=== PATIENT | female | born 2000 | race Two or more races ===

== ENCOUNTER 2023-06-15 05:17 | Emergency (ER) | payer MEDICAID ==
[~2023-06-15] VITALS: Ht 157.5 cm; Wt 61.1 kg
[2023-06-15] MEDS ORDERED: ALBUTEROL MEDNEB 2.5 mg/3ml NEB NEB ONE (06:45)
[2023-06-15] MEDS ORDERED: IPRATROPIUM BROM 0.5 MG/2.5ML INH SOL NEB ONE (06:45)
[2023-06-15 07:42] VITALS: BP 122/77; TEMP 98.6
[2023-06-15 07:44] VITALS: PULSE 96; RESP 18; O2SAT 96
[2023-06-15 08:18] LABS: Urine Bacteria FEW /hpf (None Seen); Urine Blood Negative /uL (Negative); Urine Clarity HAZY (Clear); Urine Color Yellow (Yellow); Urine Mucus FEW (None Seen); Urine Protein, UAD TRACE (Negative); Urine Specific Gravity 1.021 (1.001-1.035); Urine WBC 1 /hpf (0 - 5); Urine pH 6.5 (5.0-8.0)
[2023-06-15 09:02] LABS: COVID19 ANTIGEN SOFIA FIA NEGATIVE (NEGATIVE)
[2023-06-15 09:09] LABS: Rapid Influenza B Negative (Negative)
[2023-06-15 09:10] LABS: Rapid Influenza A Positive (Negative)
[2023-06-15] MEDS ORDERED: NITR-87 PO (09:23)
[2023-06-15] MEDS ORDERED: ALBU108A5 IN (09:23)
[2023-06-15] MEDS ORDERED: TAMIFLU PO (09:23)
[2023-06-15] MEDS ORDERED: ACET500T58 PO (09:23)
== END 2023-06-15 09:24 | disposition home or self-care (01) ==
LOC: ER 05:17
DX: J10.1 Influenza due to other identified influenza virus with other respiratory manifestations (principal); N39.0 Urinary tract infection, site not specified; Z20.822 Contact with and (suspected) exposure to COVID-19
CPT/HCPCS: 36415; 81001; 81025; 87426; 87804; 94640; 99283; J7644

== ENCOUNTER 2023-06-18 22:43 | Emergency (ER) | payer MEDICAID ==
[~2023-06-18] VITALS: Ht 157.5 cm; Wt 61.4 kg
[~2023-06-18 22:43] MED LIST: ACET500T58 PO; ALBU108A5 IN; NITR-87 PO; TAMIFLU PO
[2023-06-18 22:56] VITALS: BP 112/79; PULSE 103; RESP 18; O2SAT 96
[2023-06-18 23:26] LABS: Basophils # (auto) 0 10 ^3/uL (0-0.2); Basophils % (auto) 0.3 % (0.0-2.0); Eosinophils # (auto) 0.1 10 ^3/uL (0-0.8); Eosinophils % (auto) 1.3 % (0.0-7.0); Hematocrit 41.2 % (36.0-46.0); Lymphocytes # (auto) 1.6 10 ^3/uL (0.4-5.4); Mean Corpuscular Hemoglobin 30.7 pg (28.0-32.0); Mean Corpuscular Hgb Conc. 34.1 g/dL (32.0-36.0); Mean Corpuscular Volume 90.1 fL (80.0-100.0); Monocytes # (auto) 0.4 10 ^3/uL (0-1.3); Monocytes % (auto) 6.8 % (0.0-12.0); Neutrophils # (auto) 3.6 10 ^3/uL (1.6-8.6); Neutrophils % (auto) 63.6 % (37.0-80.0); Red Blood Cells 4.57 10^6/uL (4.0-5.20); Red Cell Distribution Width 13.4 % (11.8-14.3); White Blood Cell 5.6 10^3/uL (4.4-10.8)
[2023-06-18 23:29] LABS: Urine Bacteria NONE SEEN /hpf (None Seen); Urine Blood Negative /uL (Negative); Urine Clarity Clear (Clear); Urine Color Yellow (Yellow); Urine Mucus FEW (None Seen); Urine Protein, UAD Negative (Negative); Urine Specific Gravity 1.017 (1.001-1.035); Urine WBC 1 /hpf (0 - 5)
[2023-06-18 23:40] LABS: Alanine Aminotransferase 22 U/L (7-40); Alkaline Phosphatase 58 U/L (46-116); Anion Gap 6 (5-15); Aspartate Aminotransferase 23 U/L (13-40); Calcium 9.3 mg/dL (8.5-10.1); Carbon Dioxide 27 mmol/L (20-30); Chloride 106 mmol/L (98-107); Glucose 97 mg/dL (74-106); Potassium 3.5 mmol/L (3.5-5.1); Sodium 139 mmol/L (136-145)
[2023-06-18 23:41] LABS: Bilirubin, Total 0.3 mg/dL (0.2-1.0); Total Protein 6.4 g/dL (5.7-8.2)
[2023-06-18 23:57] LABS: BUN/Creatinine Ratio 8.3 (10.0-20.0); Blood Urea Nitrogen < 5 mg/dL (9-23)
[2023-06-19] MEDS ORDERED: LIDOCAINE 1% HCL (LOCAL ANESTH.) INJ 20ML MDV ONE (10:53)
== END 2023-06-19 06:26 | disposition left against medical advice (07) ==
LOC: ER 22:43
DX: O26.892 Other specified pregnancy related conditions, second trimester (principal); R10.2 Pelvic and perineal pain; M54.59 Other low back pain; Z3A.15 15 weeks gestation of pregnancy; Z53.21 Procedure and treatment not carried out due to patient leaving prior to being seen by health care provider
CPT/HCPCS: 36415; 80053; 81001; 84702; 85025; 99281; J2001

== ENCOUNTER 2023-08-03 14:30 | Observation (INO) | payer MEDICAID ==
[~2023-08-03] VITALS: Ht 157.5 cm; Wt 63.4 kg
[2023-08-03 14:36] VITALS: BP 129/86; PULSE 137; RESP 16; O2SAT 96
== END 2023-08-03 16:38 | disposition home or self-care (01) ==
LOC: ER 14:30 → LDRP 15:39
PROVIDERS: ADMIT Obstetrics & Gynecology; ATTEND Obstetrics & Gynecology
DX: O26.892 Other specified pregnancy related conditions, second trimester (principal); R51.9 Headache, unspecified; Z3A.23 23 weeks gestation of pregnancy
CPT/HCPCS: 59025; 81002; 94760; 99284; G0378; 93005

== ENCOUNTER 2023-08-20 22:07 | Observation (INO) | payer MEDICAID ==
[~2023-08-20] VITALS: Ht 157.5 cm; Wt 64.4 kg
[2023-08-20] MEDS ORDERED: LACTATED RINGER'S 1,000 ML IV SCH (22:30)
[2023-08-20] MEDS ORDERED: TERBUTALINE SULFATE 1 MG/ML 1ML VIAL SC SCH (22:30)
[2023-08-20] MEDS ORDERED: LACTATED RINGER'S 1,000 ML IV ONE (22:30)
[2023-08-20 22:38] LABS: Urine Bacteria FEW /hpf (None Seen); Urine Blood 3+ /uL (Negative); Urine Clarity HAZY (Clear); Urine Color Colorless (Yellow); Urine Protein, UAD TRACE (Negative); Urine Specific Gravity 1.004 (1.001-1.035); Urine Urobilinogen Normal (Negative); Urine WBC 291 /hpf (0 - 5); Urine WBC Clumps PRESENT /hpf (None Seen); Urine pH 6.5 (5.0-8.0)
[2023-08-20] MEDS ORDERED: cefTRIAXone 1GM/50ML D5W 50 ML IV ONE (22:45)
[2023-08-20 22:49] LABS: Amphetamine Screen, Urine Neg (NEGATIVE); Barbiturate Scree,Urine Neg (NEGATIVE); Benzodiazephine Screen, Urine Neg (NEGATIVE); Cocaine Screen, Urine Neg (NEGATIVE)
[2023-08-20 22:50] LABS: Cannabinoid Screen, Urine Neg (NEGATIVE); Opiate Scree,Urine Neg (NEGATIVE); Phencyclidine Screen, Urine Neg (NEGATIVE)
[2023-08-20 23:41] LABS: Basophils # (auto) 0 10 ^3/uL (0-0.2); Basophils % (auto) 0.2 % (0.0-2.0); Eosinophils # (auto) 0.1 10 ^3/uL (0-0.8); Eosinophils % (auto) 0.7 % (0.0-7.0); Hemoglobin 12.7 g/dL (12.2-16.2); Lymphocytes # (auto) 1.9 10 ^3/uL (0.4-5.4); Lymphocytes % (auto) 14.9 % (10.0-50.0); Mean Corpuscular Hgb Conc. 33.5 g/dL (32.0-36.0); Mean Corpuscular Volume 92.5 fL (80.0-100.0); Monocytes # (auto) 0.8 10 ^3/uL (0-1.3); Monocytes % (auto) 6.1 % (0.0-12.0); Neutrophils # (auto) 10.1 10 ^3/uL (1.6-8.6); Neutrophils % (auto) 78.1 % (37.0-80.0); Nucleated Red Blood Cells % 0.1 %; Red Blood Cells 4.11 10^6/uL (4.0-5.20); Red Cell Distribution Width 13.9 % (11.8-14.3); White Blood Cell 12.9 10^3/uL (4.4-10.8)
[2023-08-20 23:53] LABS: Alanine Aminotransferase 16 U/L (7-40); Albumin 3.5 g/dL (3.2-4.8); Alkaline Phosphatase 81 U/L (46-116); Anion Gap 7 (5-15); Aspartate Aminotransferase 18 U/L (13-40); Bilirubin, Total 0.4 mg/dL (0.2-1.0); Calcium 8.8 mg/dL (8.7-10.4); Carbon Dioxide 24 mmol/L (20-30); Chloride 108 mmol/L (98-107); Glucose 111 mg/dL (74-106); Potassium 3.3 mmol/L (3.5-5.1); Sodium 139 mmol/L (136-145); Total Protein 5.8 g/dL (5.7-8.2)
[2023-08-20] MEDS ORDERED: PREN-96 PO (23:53)
[2023-08-20] MEDS ORDERED: ASPI-543 PO (23:53)
[2023-08-20 23:58] LABS: BUN/Creatinine Ratio 9.3 (10.0-20.0); Blood Urea Nitrogen < 5 mg/dL (9-23)
== END 2023-08-21 00:29 | disposition home or self-care (01) ==
LOC: LDRP 22:07
PROVIDERS: ADMIT Obstetrics & Gynecology; ATTEND Obstetrics & Gynecology
DX: O47.02 False labor before 37 completed weeks of gestation, second trimester (principal); O23.42 Unspecified infection of urinary tract in pregnancy, second trimester; O99.282 Endocrine, nutritional and metabolic diseases complicating pregnancy, second trimester; E86.0 Dehydration; Z3A.24 24 weeks gestation of pregnancy
CPT/HCPCS: 36415; 59025; 76815; 80053; 80307; 81001; 81002; 85025; 87086; 94760; 96361; 96365; 96372; G0378; J0696; J3105; 87088; 87186; 96360

== ENCOUNTER 2023-11-11 07:28 | Observation (INO) | payer MEDICAID ==
[~2023-11-11] VITALS: Ht 157.5 cm; Wt 70.8 kg
[~2023-11-11 07:28] MED LIST changes: +ASPI-543 PO; +PREN-96 PO
[2023-11-11] MEDS ORDERED: CEPH250C PO (08:53)
[2023-11-11] MEDS: TERBUTALINE SULFATE 1 MG/ML 1ML VIAL SC SCH (09:02)
[2023-11-11] MEDS: LACTATED RINGER'S 1,000 ML IV ONE (09:04)
== END 2023-11-11 10:24 | disposition home or self-care (01) ==
LOC: LDRP 07:28 → UNDOADMOB 07:28 → LDRP 07:36 → UNDODISOB 10:24
PROVIDERS: ADMIT Obstetrics & Gynecology; ATTEND Obstetrics & Gynecology
DX: O23.43 Unspecified infection of urinary tract in pregnancy, third trimester (principal); O60.03 Preterm labor without delivery, third trimester; O99.513 Diseases of the respiratory system complicating pregnancy, third trimester; J45.909 Unspecified asthma, uncomplicated; Z3A.36 36 weeks gestation of pregnancy
CPT/HCPCS: 59025; 81002; 96360; 96372; G0378; J3105

== ENCOUNTER 2023-11-26 05:41 | Observation (INO) | payer MEDICAID ==
[~2023-11-26 05:41] MED LIST changes: +CEPH250C PO
== END 2023-11-26 08:35 | disposition home or self-care (01) ==
LOC: LDRP 05:41
PROVIDERS: ADMIT Obstetrics & Gynecology; ATTEND Obstetrics & Gynecology
DX: O62.9 Abnormality of forces of labor, unspecified (principal); Z3A.38 38 weeks gestation of pregnancy
CPT/HCPCS: 59025; 76805; 81002; 94760; G0378

== ENCOUNTER 2023-11-26 10:20 | Inpatient (IN) | payer MEDICAID ==
[~2023-11-26] VITALS: Ht 157.5 cm; Wt 70.8 kg
[2023-11-26] MEDS ORDERED: BUTORPHANOL TARTRATE 2 MG/1 ML VIAL IV PRN ×2 (11:00)
[2023-11-26] MEDS ORDERED: LIDOCAINE 2%HCL (LOCAL ANESTH.) INJ 20ML MDV IJ PRN (11:00)
[2023-11-26 11:30] LABS: Urine Bacteria None Seen /hpf (None Seen)
[2023-11-26 11:44] LABS: Urine Blood 2+ /uL (Negative); Urine Clarity Clear (Clear); Urine Color Yellow (Yellow); Urine Mucus FEW (None Seen); Urine Protein, UAD Negative (Negative); Urine Specific Gravity 1.014 (1.001-1.035); Urine Urobilinogen Normal (Negative); Urine WBC 1 /hpf (0 - 5)
[2023-11-26 11:49] LABS: Amphetamine Screen, Urine Neg (NEGATIVE); Barbiturate Scree,Urine Neg (NEGATIVE); Benzodiazephine Screen, Urine Neg (NEGATIVE); Cocaine Screen, Urine Neg (NEGATIVE)
[2023-11-26 11:51] LABS: Basophils # (auto) 0 10 ^3/uL (0-0.2); Basophils % (auto) 0.1 % (0.0-2.0); Eosinophils # (auto) 0 10 ^3/uL (0-0.8); Eosinophils % (auto) 0.3 % (0.0-7.0); Hematocrit 42.8 % (36.0-46.0); Lymphocytes # (auto) 1.1 10 ^3/uL (0.4-5.4); Lymphocytes % (auto) 9.2 % (10.0-50.0); Mean Corpuscular Hemoglobin 28.9 pg (28.0-32.0); Mean Corpuscular Hgb Conc. 32.7 g/dL (32.0-36.0); Mean Corpuscular Volume 88.5 fL (80.0-100.0); Monocytes # (auto) 0.7 10 ^3/uL (0-1.3); Monocytes % (auto) 5.4 % (0.0-12.0); Neutrophils # (auto) 10.7 10 ^3/uL (1.6-8.6); Nucleated Red Blood Cells % 0.1 %; Red Blood Cells 4.83 10^6/uL (4.0-5.20); White Blood Cell 12.5 10^3/uL (4.4-10.8)
[2023-11-26 11:51] LABS: Cannabinoid Screen, Urine Neg (NEGATIVE); Opiate Scree,Urine Neg (NEGATIVE); Phencyclidine Screen, Urine Neg (NEGATIVE)
[2023-11-26 11:53] LABS: Alanine Aminotransferase 11 U/L (7-40); Albumin 3.7 g/dL (3.2-4.8); Alkaline Phosphatase 213 U/L (46-116); Anion Gap 10 (5-15); Aspartate Aminotransferase 26 U/L (13-40); Bilirubin, Total 0.5 mg/dL (0.2-1.0); Calcium 9.6 mg/dL (8.5-10.1); Carbon Dioxide 19 mmol/L (20-30); Chloride 108 mmol/L (98-107); Glucose 87 mg/dL (74-106); Potassium 3.8 mmol/L (3.5-5.1); Sodium 137 mmol/L (136-145); Total Protein 6.1 g/dL (5.7-8.2)
[2023-11-26 11:59] LABS: BUN/Creatinine Ratio 10.6 (10.0-20.0); Blood Urea Nitrogen < 5 mg/dL (9-23)
[2023-11-26] MEDS: ONDANSETRON HCL 4 MG/2 ML VIAL IV PRN (12:04)
[2023-11-26 12:08] LABS: INR 0.92 (0.9-1.15); Partial Thromboplastin Time 26.5 SEC (24.5-34.5); Prothrombin Time 9.8 sec (9.3-11.8)
[2023-11-26] MEDS: LACTATED RINGER'S 1,000 ML IV SCH (12:23)
[2023-11-26] MEDS: ROPIVACAINE HCL 200 ML ONE (12:25)
[2023-11-26] MEDS: LACT. RINGERS/OXYTOCIN 20UNITS 1,000 ML IV SCH (15:03)
[2023-11-26] MEDS: LACT. RINGERS/OXYTOCIN 20UNITS 500 ML IV ONE ×2 (17:58→17:59)
[2023-11-26] MEDS: METHYLERGONOVINE MALEATE 0.2 MG/ML AMP IM ONE (17:59)
[2023-11-26] MEDS: ePHEDrine SULFATE 50 MG/ML AMP ONE (18:05)
[2023-11-26] MEDS ORDERED: ONDANSETRON ODT 4 MG TAB PO PRN (18:45)
[2023-11-26] MEDS: IBUPROFEN 600 MG TAB PO PRN (20:20)
[2023-11-26] MEDS: ACETAMINOPHEN 325 MG TAB PO PRN (21:51)
[2023-11-26] MEDS: DOCUSATE SOD 100 MG CAP PO SCH (21:52)
[2023-11-26 23:00] VITALS: BP 102/65; PULSE 83; RESP 16; TEMP 97.6; O2SAT 95
[2023-11-26] MEDS: DERMOPLAST 60ML BOTTLE TOP PRN (23:48)
[2023-11-26] MEDS: PHISODERM TOP SOLN 240ML BTL TOP PRN (23:48)
[2023-11-26] MEDS: WITCH HAZEL-GLYCERIN PAD TOP PRN (23:48)
[2023-11-27 03:40] VITALS: BP 109/76; PULSE 85; RESP 18; TEMP 98.2; O2SAT 97
[2023-11-27 07:06] LABS: RPR Non Reactive (Non Reactive)
[2023-11-27 07:30] VITALS: BP 104/64; PULSE 100; RESP 18; TEMP 98.4; O2SAT 97; O2SAT 98
[2023-11-27 11:15] VITALS: BP 108/68; PULSE 83; RESP 18; TEMP 98.2; O2SAT 98
[2023-11-27 15:10] VITALS: BP 106/64; PULSE 78; RESP 18; TEMP 98.5; O2SAT 98
[2023-11-27 18:38] VITALS: BP 110/67; PULSE 94; RESP 18; TEMP 98.3; O2SAT 97
[2023-11-27 23:01] VITALS: BP 107/70; PULSE 91; RESP 14; TEMP 98.4; O2SAT 96
[2023-11-28 03:15] VITALS: BP 101/62; PULSE 91; RESP 16; TEMP 97.9; O2SAT 96
[2023-11-28 07:08] VITALS: BP 109/73; PULSE 84; RESP 18; TEMP 98; O2SAT 96
[2023-11-28 11:02] VITALS: BP 118/79; PULSE 82; RESP 18; TEMP 98; O2SAT 96
== END 2023-11-28 12:25 | disposition home or self-care (01) | DRG 560 ==
LOC: LDRP 10:20 → OBSVTOIN 10:20
PROVIDERS: ADMIT Obstetrics & Gynecology; ATTEND Obstetrics & Gynecology
PROC: 10E0XZZ Delivery of Products of Conception, External Approach (ICD-10-PCS; principal; 2023-11-26)
PROC: 0UQMXZZ Repair Vulva, External Approach (ICD-10-PCS; 2023-11-26)
PROC: 3E0R3BZ Introduction of Anesthetic Agent into Spinal Canal, Percutaneous Approach (ICD-10-PCS; 2023-11-26)
PROC: 00HU33Z Insertion of Infusion Device into Spinal Canal, Percutaneous Approach (ICD-10-PCS; 2023-11-26)
DX: O71.82 Other specified trauma to perineum and vulva (principal); Z37.0 Single live birth; Z3A.38 38 weeks gestation of pregnancy
CPT/HCPCS: 36415; 59025; 59409; 62282; 80053; 80307; 81001; 81002; 85025; 85610; 85730; 86592; 86850; 86900; 86901; 94760; 94762; 96360; 96361; 96365; 96366; 96374; G0378; J2405; J2590

== ENCOUNTER 2024-05-02 23:39 | Emergency (ER) | payer MEDICAID ==
[~2024-05-02] VITALS: Ht 157.5 cm; Wt 66.2 kg
[2024-05-03] MEDS: SODIUM CHLORIDE 0.9% 1,000 ML IV ONE (00:05)
[2024-05-03 00:47] LABS: Basophils # (auto) 0 10 ^3/uL (0-0.2); Basophils % (auto) 0.3 % (0.0-2.0); Eosinophils # (auto) 0.2 10 ^3/uL (0-0.8); Eosinophils % (auto) 3.4 % (0.0-7.0); Hematocrit 44.1 % (36.0-46.0); Hemoglobin 15.3 g/dL (12.2-16.2); Lymphocytes # (auto) 1.6 10 ^3/uL (0.4-5.4); Lymphocytes % (auto) 29.5 % (10.0-50.0); Mean Corpuscular Hemoglobin 30.6 pg (28.0-32.0); Mean Corpuscular Hgb Conc. 34.7 g/dL (32.0-36.0); Mean Corpuscular Volume 88.4 fL (80.0-100.0); Monocytes # (auto) 0.5 10 ^3/uL (0-1.3); Monocytes % (auto) 9.9 % (0.0-12.0); Neutrophils # (auto) 3.2 10 ^3/uL (1.6-8.6); Neutrophils % (auto) 56.9 % (37.0-80.0); Nucleated Red Blood Cells % 0.1 %; Platelet Count (auto) 202 10^3/uL (140-450); Red Blood Cells 4.99 10^6/uL (4.0-5.20); Red Cell Distribution Width 13.3 % (11.8-14.3); White Blood Cell 5.6 10^3/uL (4.4-10.8)
[2024-05-03 00:59] LABS: Alanine Aminotransferase 25 U/L (7-40); Albumin 4.8 g/dL (3.2-4.8); Alkaline Phosphatase 110 U/L (46-116); Anion Gap 5 (5-15); Aspartate Aminotransferase 16 U/L (13-40); Bilirubin, Total 0.6 mg/dL (0.2-1.0); Calcium 9.7 mg/dL (8.7-10.4); Carbon Dioxide 29 mmol/L (20-31); Chloride 106 mmol/L (98-107); Glucose 101 mg/dL (74-106); Potassium 3.8 mmol/L (3.5-5.1); Sodium 140 mmol/L (136-145); Total Protein 7.3 g/dL (5.7-8.2)
[2024-05-03 01:00] LABS: BUN/Creatinine Ratio 7.4 (10.0-20.0); Blood Urea Nitrogen < 5 mg/dL (9-23)
[2024-05-03] MEDS: KETOROLAC TROMETH 30 MG/ML 1ML VIAL IV ONE (01:30)
[2024-05-03] MEDS: FAMOTIDINE (10MG/ML) 2ML VL IV ONE (01:30)
[2024-05-03] MEDS: ONDANSETRON HCL 4 MG/2 ML VIAL IV ONE (01:30)
[2024-05-03 02:21] LABS: Urine Bacteria None Seen /hpf (None Seen)
[2024-05-03 03:15] LABS: Urine Blood Negative /uL (Negative); Urine Clarity Clear (Clear); Urine Color Light-Yellow (Yellow); Urine Protein, UAD Negative (Negative); Urine Specific Gravity 1.003 (1.001-1.035); Urine Urobilinogen Normal (Negative); Urine WBC 1 /hpf (0 - 5); Urine pH 6.5 (5.0-9.0)
[2024-05-03 03:43] VITALS: BP 107/69; PULSE 78; RESP 20; TEMP 97.8; O2SAT 94
[2024-05-03] MEDS ORDERED: IOHEXOL 300 MG/ML 100ML BOTTLE IJ ONE (05:05)
== END 2024-05-03 05:12 | disposition left against medical advice (07) ==
LOC: ER 23:39
DX: N83.202 Unspecified ovarian cyst, left side (principal); R10.9 Unspecified abdominal pain; R11.2 Nausea with vomiting, unspecified; M79.674 Pain in right toe(s); Z79.899 Other long term (current) drug therapy; Z79.82 Long term (current) use of aspirin
CPT/HCPCS: 36415; 74177; 80053; 81001; 81025; 85025; 96361; 96374; 96375; 99285; J1885; J2405; J3490; J7030; J7070; Q9967